=== PATIENT | female | born 1945 | race Caucasian/White ===

== ENCOUNTER 2022-01-25 17:09 | Outpatient (CLI) | payer MEDICARE, OTHER ==
--- NOTE | 2022-01-26 13:06 | XRAY Report ---
PROCEDURE: Femur 2V LT INDICATIONS: CONTUSION OF L THIGH TECHNIQUE: 2 views of the femur were acquired. COMPARISON: None. FINDINGS: Bones: No fractures or dislocations. No suspicious bony lesions. Soft tissues: No suspicious soft tissue calcifications or masses. IMPRESSION: No visualized acute fracture or dislocation. However, occult injury cannot be excluded. Recommend breonna rt interval imaging follow-up in 7-10 days as clinically indicated for additional evaluation. Reviewed by: Queenie Rehman MD on 01/26/2022 1:05 PM PDT Approved by: Queenie Rehman MD on 01/26/2022 1:05 PM PDT Station ID: [id number]
--- NOTE | 2022-01-26 13:07 | XRAY Report ---
PROCEDURE: Pelvis 1 View INDICATIONS: CONTUSION OF L THIGH TECHNIQUE: Single view the pelvis. COMPARISON: None. FINDINGS: No visualized fracture or dislocation. No suspicious osseous lesions. Degenerative changes present wi thin the lower lumbar spine. IMPRESSION: No visualized acute fracture or dislocation. However, occult injury cannot be excluded. Recommend breonna rt interval imaging follow-up in 7-10 days as clinically indicated for additional evaluation. Reviewed by: Queenie Rehman MD on 01/26/2022 1:05 PM PDT Approved by: Queenie Rehman MD on 01/26/2022 1:05 PM PDT Station ID: [id number]
== END 2022-01-25 23:59 | disposition home or self-care (01) ==
LOC: DI.N 17:09
PROVIDERS: ATTEND Nurse Practitioner
DX: S70.12XA Contusion of left thigh, initial encounter (principal)

== ENCOUNTER 2022-02-17 21:34 | Emergency (ER) | payer MEDICARE, OTHER ==
[2022-02-17 21:45] VITALS: BP 148/71
[2022-02-17] MEDS ORDERED: PROPARACAINE 0.5% OPHTH DROPS 15 ML RIGHTEYE STA (21:46)
--- NOTE | 2022-02-17 21:46 | ED Physician Documentation ---
PD HPI OPHTHO - Stated complaint Stated Complaint: RIGHT EYE INJURY - Chief complaint Chief Complaint: Heent - History obtained from History obtained from: Patient - History of Present Illness Timing - onset: How many hours ago (few), Today Timing - duration: Hours (few) Timing - details: Abrupt onset, Still present Location: Right Quality / character: Aching Associated symptoms: FB sensation (she was doing some cutting logs with saw (wearing goggles) and some wind blew sawdust up into her eye. Was not direct with velocity. However had feeling of FB. She irrigated her eye and tried to clear with cotton tipped applicator. Still feeling of FB.). No: Redness, Swelling, Photophobia Contributing factors: FB (sawdust) Similar symptoms before: Diagnosis (has had corneal abrasions and FBs in the past.) Recently seen: Not recently seen Review of Systems Constitutional: denies: Fever, Chills Eyes: reports: Irritation. denies: Loss of vision, Photophobia Nose: denies: Rhinorrhea / runny nose, Congestion Throat: denies: Sore throat Respiratory: denies: Cough PD PAST MEDICAL HISTORY - Past Medical History Neuro: None Endocrine/Autoimmune: None - Allergies Allergies/Adverse Reactions: Allergies Allergy/AdvReac Type Severity Reaction Status Date / Time No Known Drug Allergies Allergy Verified 02/17/22 21:43 PD ED PE NORMAL - Vitals Vital signs reviewed: Yes - General General: Alert and oriented X 3, Well developed/nourished - HEENT HEENT: PERRL, EOMI (mild direct light sensitive, not indirect. ) PD ED PE EXPANDED - Eyes Eyes: Corneal abrasion (underside upper eyelid and also superficial anterior corneal surface. ), Anterior chambers clear, Normal fundi. No: Conj/sclera FB, Corneal FB, Hyphema Results - Vitals Vitals: Vital Signs - 24 hr 02/17/22 21:39 Temperature 36.4 C L Heart Rate 71 Respiratory 14 Rate Blood Pressure 148/71 H O2 Saturation 97 Oxygen O2 Source Room air PD MEDICAL DECISION MAKING - ED course Complexity details: considered differential (eval with exam and flourescein to look for residual FB and /or abrasion. ), d/w patient Departure - Departure Disposition: 01 Home, Self Care Clinical Impression: Corneal abrasion, right Qualifiers: Encounter type: initial encounter Qualified Code(s): S05.01XA - Injury of conjunctiva and corneal abrasion without foreign body, right eye, initial encounter Condition: Stable Record reviewed to determine appropriate education?: Yes Instructions: ED Eye Injury Corneal Abrasion Comments: Moisturizing or lubricating eye ointment or drops or gel to help lubricate the surface. Otherwise Tylenol if needed for pains. I do not see any residual foreign body. There is a superficial abrasions noted under the eyelid and on the surface of the eye. This should heal over the next 1 to 2 days. Recheck if not improved in that timeframe or if any signs of infection develop. Discharge Date/Time: 02/17/22 23:00
== END 2022-02-17 23:00 | disposition home or self-care (01) ==
LOC: ED 21:34
DX: S05.01XA Injury of conjunctiva and corneal abrasion without foreign body, right eye, initial encounter (principal); X58.XXXA Exposure to other specified factors, initial encounter; Y93.H3 Activity, building and construction
CPT/HCPCS: 99282; J3490

== ENCOUNTER 2024-04-22 19:02 | Outpatient (CLI) | payer MEDICARE, OTHER ==
[2024-04-22 19:15] LABS: BASOPHILS # (AUTO) 0.1 10^3/uL (0.0-0.1); BASOPHILS % (AUTO) 0.7 %; EOSINOPHILS # (AUTO) 0.1 10^3/uL (0.0-0.7); EOSINOPHILS % (AUTO) 2.1 %; HCT - HEMATOCRIT 42.2 % (37.0-47.0); HGB - HEMOGLOBIN 13.7 g/dL (12.0-16.0); LYMPHOCYTES # (AUTO) 1.3 10^3/uL (1.5-3.5); LYMPHOCYTES % (AUTO) 19.7 %; MEAN CORPUSCULAR HEMOGLOBIN 30.1 pg (27.0-31.0); MEAN CORPUSCULAR HGB CONC 32.5 g/dL (32.0-36.0); MEAN CORPUSCULAR VOLUME 92.7 fL (81.0-99.0); MEAN PLATELET VOLUME 11.8 fL (7.9-10.8); MONOCYTES # (AUTO) 0.4 10^3/uL (0.0-1.0); MONOCYTES % (AUTO) 6.5 %; NEUTROPHILS # (AUTO) 4.8 10^3/uL (1.5-6.6); NEUTROPHILS % (AUTO) 70.6 %; PLT - PLATELET COUNT 200 10^3/uL (130-450); RED BLOOD COUNT 4.55 10^6/uL (4.20-5.40); RED CELL DISTRIBUTION WIDTH 13.2 % (12.0-15.0); WHITE BLOOD COUNT 6.8 x10^3/uL (4.8-10.8)
[2024-04-22 19:30] LABS: CALCIUM 9.1 mg/dL (8.5-10.3); CREATININE 1.2 mg/dL (0.6-1.3); POTASSIUM 4.2 mmol/L (3.5-4.5)
== END 2024-04-22 19:03 | disposition home or self-care (01) ==
LOC: LAB 19:02
PROVIDERS: ATTEND Physician Assistant Medical
DX: U07.1 COVID-19 (principal)
CPT/HCPCS: 36415; 80048; 85025